=== PATIENT | male | born 1980 | race Caucasian/White ===

== ENCOUNTER 2025-06-17 15:34 | Emergency (ER) | payer MEDICAID, SELFPAY ==
[2025-06-17 15:35] VITALS: BP 142/86; PULSE 110; RESP 18; TEMP 36.8; O2SAT 99; BMI 22.2
--- NOTE | 2025-06-17 15:44 | CT_ITS ---
PROCEDURE: ABDOMEN/PELVIS WITHOUT CONT 06/17/2025 REASON FOR EXAM: KIDNEY STONE TECHNIQUE: Procedure Code: CTABDPEL Modality: CT Procedure: ABDOMEN/PELVIS WITHOUT CONT Noncontrast technique limits evaluation of the abdominal and pelvic viscera. Coronal and Sagittal reconstruction series were provided. One or more dose reduction techniques were used (e.g., Automated exposure control, adjustment of the mA and/or kV according to patient size, use of iterative reconstruction technique). COMPARISON: None available. FINDINGS: Lung bases: Unremarkable. Liver: Normal-size. Left hepatic cyst measures 2.0 x 1.2 cm. No obvious hepatic mass. Gallbladder: Unremarkable. No biliary ductal dilatation. Spleen: Normal size. Pancreas: Normal size. No surrounding inflammation. Adrenals: Unremarkable. Kidneys: Nonobstructive left renal calculus measuring 2 mm. No hydronephrosis. Bladder: Unremarkable. Reproductive Organs: Prostate nonenlarged. No pelvic masses. Bowel: No bowel obstruction. Appendix: Normal. Lymph nodes: Unremarkable. Vasculature: The abdominal aorta and IVC contours are normal. Noncontrast technique limits evaluation. Peritoneum / Retroperitoneum: No free fluid or air. Bones: No acute fractures. CT/Abdomen/Pelvis without Cont IMPRESSION: 1. Nonobstructive 2 mm left renal calculus. 2. Left hepatic cyst measures 2.0 cm. 3. No acute findings in the abdomen or pelvis. Reading Location: [facility]
--- NOTE | 2025-06-17 15:45 | EX.ED.DYSGE1 ---
HPI History of Present Illness Chief Complaint: Flank Pain Detail of Chief Complaint: Right flank pain radiating anteriorly with nausea, vomiting and initially h Informant: patient Onset/Context/Timing Onset: Days Context: Sudden Onset Timing: Continuous and Waxes and wanes Quality: Colicky pain Location: Right flank radiating anteriorly Current Severity: Moderate Maximum Severity: Severe Worsened by: Nothing Relieved by: Nothing Associated Symptoms Associated Symptoms: Initially hematuria and nausea and Narrative Narrative: Patient is a 44-year-old male with no significant past medical history. He has history of renal/ureteral lithiasis. He has not been seen in the emergency room for several years. States several days ago he developed abrupt onset of flank pain radiating anteriorly with initial hematuria. He no longer has noted blood. He has had a couple episodes of vomiting. He denies objective fever or shaking chills. He denies headache, visual, ocular auditory symptoms. He denies cardiac or respiratory symptoms. He denies hematemesis. He denies scrotal pain or swelling. He denies any alleviating, precipitating or exacerbating factors. Prior similar symptoms: Yes (Kidney stone/ureterolithiasis) Recent Illness/Hospitalization: No PFSH [facility] Medical History (Updated 06/17/25 @ 18:[address] Mann Babb MD) Ureterolithiasis Home Medications ?Medication ?Instructions ?Recorded ?Last Taken ?Type ketorolac 10 mg tablet 10 mg PO Q6H PRN Pain 03/12/14 Unknown History hydrocodone-acetaminophen 5-325mg 1 tab PO Q6H PRN PRN Pain 3 days 06/17/25 Unknown Rx 5mg-325mg #10 TABLETS ketorolac 10 mg tablet 10 mg PO Q6H #20 tabs 06/17/25 Unknown Rx Allergy/AdvReac Type Severity Reaction Status Date / Time No Known Allergies Allergy Verified 06/17/25 15:36 Surgical History no surgical history no surgical history Social History Smoking Status: Current every day smoker tobacco type: cigarettes ROS ROS ED Constitutional Constitutional ED: Denies chills, fever(s), subjective, sweats or weight loss Eyes Eyes: Denies blurry vision or change in vision ENT ENT ED: Denies rhinorrhea Cardiovascular Cardiovascular: Denies chest pain or palpitations Respiratory/Chest Respiratory/Chest: Denies cough, dyspnea or dyspnea on exertion Gastrointestinal Gastrointestinal: Reports abdominal pain, nausea and vomiting; Denies constipation, diarrhea or melena Genitourinary Genitourinary ED: Reports hematuria; Denies dysuria or urinary frequency Musculoskeletal Musculoskeletal: Reports other Details: Right sided flank pain ; Denies arthralgias, back pain or myalgias Integumentary Denies rash Neurologic Neurologic: Denies headache(s) or paresthesias Endocrine Endocrinology: Denies cold intolerance or heat intolerance Hematologic/Lymphatic Hematologic/Lymphatic: Reports systems reviewed and no addt'l complaints, except as documented EXAM Physical Exam Const Vital Signs: 06/17/25 15:35 06/17/25 17:44 Temperature 98.2 F 98.7 F Temperature Source Oral Oral Pulse Rate 110 H 82 Respiratory Rate 18 16 Blood Pressure 142/86 H 118/79 Blood Pressure Mean 104 92 Pulse Ox 99 100 Oxygen Delivery Method Room Air Room Air Positive well nourished and well developed Constitutional Narrative: Patient appears uncomfortable. His blood pressure is elevated. He is tachycardic. He is slightly pale. General Appearance ED: well developed HEENT Reports moist mucous membranes HEENT Narrative: Head is atraumatic and normocephalic. Ears are unremarkable. Nares patent. Eyes PERRL and EOMs intact bilaterally General Eye ED: Negative for pale conjunctiva or scleral icterus Neck no lymphadenopathy, supple and no JVD Resp normal respiratory effort and clear to auscultation bilaterally Cardio regular rate, regular rhythm, S1 normal heart sound, S2 normal heart sound and no murmurs GI normal to inspection, nondistended, normoactive bowel sounds, non-tender, non-distended and no masses; Negative for hepatosplenomegaly Narrative: Mild right-sided flank pain to percussion. Back/Spine General Back: CVA tenderness right Thoracic Spine / Upper Back: Negative for thoracic spinal tenderness Lumbar Spine / Lower Back: Negative for lumbar spinal tenderness Extremity normal to inspection General Extremety ED: Negative for edema or tenderness General Extremity: Negative for edema Neuro oriented x3 and CN's II-XII intact bilaterally Sensorium / Orientation: alert Psych mental status grossly normal Skin Skin Narrative: Numerous tattoos MDM MDM MDM Narrative Medical decision making narrative: Patient appears uncomfortable. IV was established. He was treated with IV ketorolac for his pain and Zofran for his nausea. CT of the abdomen pelvis without contrast was ordered as well as appropriate blood work to assess renal function, white count and urine. Prior record dates back over 10 years ago for nonsignificant overdose. Patient was seen by Dr. Caceres at that time History & Record Review Additional record(s) reviewed:: Prior ED visit and Prior labs Lab Data Attestation: I reviewed the patient's lab results. Lab results narrative: White count is elevated. This may be a stress response. H&H is unremarkable. Labs: Laboratory Results - last 24 hr 06/17/25 06/17/25 15:56 16:58 WBC 13.5 H RBC 5.44 Hgb 16.0 Hct 46.5 MCV 85.5 MCH 29.4 MCHC 34.4 RDW Std Deviation 39.9 RDW Coeff of Liz 12.9 Plt Count 273 MPV 10.1 Immature Gran % (Auto) 0.200 Neut % (Auto) 83.8 H Lymph % (Auto) 9.8 L [place] % (Auto) 6.0 Eos % (Auto) 0.1 Baso % (Auto) 0.1 Absolute Neuts (auto) 11.3 H Absolute Lymphs (auto) 1.32 Nucleated RBC % 0 Sodium 139 Potassium 4.3 Chloride 104 Carbon Dioxide 22.8 Anion Gap 12 BUN 12 Creatinine 1.01 Estim Creat Clear Calc 88.24 Est GFR (MDRD) Non-Af 93 BUN/Creatinine Ratio 11.4 Glucose 111 H Calcium 9.5 Urine Color Yellow Urine Clarity Clear Urine pH 7.0 Ur Specific [place] 1.005 Urine Protein Negative Urine Glucose (UA) Normal Urine Ketones 50 H Urine Occult Blood 150 H Urine Nitrite Negative Urine Bilirubin Negative Urine Urobilinogen Normal Ur Leukocyte Esterase 25 H Urine RBC 5-10 SEEN Urine WBC 0-5 SEEN Ur Squamous Epith Cells 0-5 SEEN Urine Bacteria 0 SEEN Urine Mucus 0 SEEN Radiography Diagnostic Testing: Clinical Impression(s) from Imaging Studies Abdomen/Pelvis CT 06/17/25 15:44 IMPRESSION: 1. Nonobstructive 2 mm left renal calculus. 2. Left hepatic cyst measures 2.0 cm. 3. No acute findings in the abdomen or pelvis. Reading Location: [facility] CT of the abdomen pelvis without contrast reveals hydroureter on the right with a oblong shaped stone at the UVJ. Radiology report was read. Looked at the axial, coronal and sagittal views again. What I thought was a UVJ stone was actually a phlebolith on the coronal views. Patient does have a nonobstructing left renal calculus. His pain is on the right, however. His urine does not reveal evidence of infection. The cause of his pain is unknown known. Treatment and Re-Evaluation :: Patient had increase in pain and became diaphoretic. 6 mg of morphine was ordered. This was after he received the acuter [place]. Discharge Plan Triage Chief Complaint: Flank Pain ED Provider: Mann Babb Dx/Rx/DC Orders Clinical Impression: Acute right flank pain, Nausea & vomiting, Dysuria, Tachycardia, Elevated blood pressure reading without diagnosis of hypertension, Calculus of left kidney Instructions: ED Dysuria, Uncertain Cause (Adult), ED Flank Pain with Uncertain Cause, ED Hypertension, To Be Confirmed Prescriptions: New ketorolac 10 mg tablet 10 mg PO Q6H Qty: 20 0RF Rx Instructions: maximum total duration of 5 days from all oral, intranasal, or parenteral formulations hydrocodone-acetaminophen 5-325 mg tablet 1 tab PO Q6H PRN PRN (Reason: Pain) 3 Days Qty: 10 0RF No Action ketorolac 10 MG tablet 10 mg PO Q6H PRN (Reason: Pain) Primary Care Provider: Care Physician,No Primary Referrals: Geovani Chanel MD [Med Staff - Active Staff, Urology] - 3-5 Days if not improving Care Physician,No Primary [Primary Care Provider, Medical] Activity Restrictions/Additional Instructions: Return if the pain medicine does not control your pain, temperature greater than 100, unable to eat or drink anything Print Language: Arabic Disposition Disposition: Home, Self Care
[2025-06-17] MEDS: 0.9% Normal Saline (1000mL) 1,000 ML 250 ML IV (15:59)
[2025-06-17 16:05] LABS: Hematocrit 46.5 % (40-54); Hemoglobin 16.0 g/dL (13.0-16.5); Immature Granulocytes Count 0.030 X10^3/uL (0.0-0.0); Mean Corp Hgb Conc 34.4 g/dL (32-36); Mean Corpuscular Volume 85.5 fL (80-94); Mean Platelet Vol. 10.1 fl (6.2-12.0); NRBC Flagged by Analyzer 0 % (0-5); Platelet Count 273 K/mm3 (150-450); RBC Distribution Width CV 12.9 % (11.6-14.6); RBC Distribution Width SD 39.9 fl (35.1-43.9); Red Blood Count 5.44 M/mm3 (4.6-6.2); White Blood Count 13.5 K/mm3 (4.4-11.0)
[2025-06-17 16:53] LABS: Anion Gap 12 (5-15); BUN 12 mg/dL (4-19); BUN/Creat Ratio 11.4 RATIO (10-20); Calcium,Total 9.5 mg/dL (7.6-11.0); Carbon Dioxide 22.8 mmol/L (21.0-32.0); Chloride 104 mmol/L (98-108); Estimated Creatinine Clearance 88.24 ml/min (50-250); Glucose 111 mg/dL (70-99); Potassium 4.3 mmol/L (3.3-5.1)
[2025-06-17 17:08] LABS: Mucous, Urine 0 SEEN /hpf (<or=2+)
[2025-06-17 17:29] LABS: Color, Urine Yellow (Yellow); Glucose, Dipstick Normal (Normal); Ketone-Dipstick 50 mg/dl (Negative); Leukocyte Esterase-Dipstick 25 /ul (Negative); Nitrite-Dipstick Negative (Negative); Occult Blood-Urine 150 /ul (Negative); Protein-Dipstick Negative (Negative); Specific Gravity, Urine 1.005 (1.002-1.030); Urine Bilirubin Dipstick Negative (Negative)
[2025-06-17 17:41] LABS: Red Blood Cells-Urine 5-10 SEEN /hpf (0-5); Squamous Epithelial Cells - UA 0-5 SEEN /hpf (0-5)
[2025-06-17 17:44] VITALS: BP 118/79; PULSE 82; RESP 16; TEMP 37.1; O2SAT 100
[2025-06-17 18:09] VITALS: BP 118/79; PULSE 82; RESP 16; TEMP 37.1; O2SAT 100
== END 2025-06-17 18:09 | disposition home or self-care (01) ==
PROVIDERS: Emergency Provider Emergency Medicine; Visit Provider Emergency Medicine
DX: R10.A1 Flank pain, right side (principal); R11.2 Nausea with vomiting, unspecified; R00.0 Tachycardia, unspecified; R30.0 Dysuria; N20.0 Calculus of kidney; R03.0 Elevated blood-pressure reading, without diagnosis of hypertension; R31.9 Hematuria, unspecified; F17.210 Nicotine dependence, cigarettes, uncomplicated
CPT/HCPCS: 74176; 80048; 81001; 85025; 96361; 96374; 96375; 99283; J2405

== ENCOUNTER 2025-07-08 13:24 | Emergency (ER) | payer MEDICAID, SELFPAY ==
[2025-07-08 13:25] VITALS: BP 141/96; PULSE 89; RESP 16; TEMP 36.6; O2SAT 99; BMI 21.7
--- NOTE | 2025-07-08 14:39 | CT_ITS ---
PROCEDURE: ABDOMEN/PELVIS WITHOUT CONT 07/08/2025 REASON FOR EXAM: RIGHT FLANK PAIN TECHNIQUE: Procedure Code: CTABDPEL Modality: CT Procedure: ABDOMEN/PELVIS WITHOUT CONT Noncontrast technique limits evaluation of the abdominal and pelvic viscera. Coronal and Sagittal reconstruction series were provided. One or more dose reduction techniques were used (e.g., Automated exposure control, adjustment of the mA and/or kV according to patient size, use of iterative reconstruction technique). RADIATION DOSE SUMMARY: CTDlvol: 6.04 mGy DLP: 309.57 mGycm COMPARISON: June 17, 2025. FINDINGS: Lung bases: Lung bases are clear. Liver: Stable small cyst in the medial aspect of the left lobe of the liver. Gallbladder: Unremarkable Spleen: Normal size. Pancreas: Normal size. No surrounding inflammation. Adrenals: Unremarkable. Kidneys: Right hydronephrosis and right hydroureter due to a 2 mm Bladder: Unremarkable Bowel: Unremarkable Appendix: Unremarkable Lymph nodes: Unremarkable. Vasculature: The abdominal aorta and IVC contours are normal. Noncontrast technique limits evaluation. Peritoneum / Retroperitoneum: Unremarkable Bones: Unremarkable CT/Abdomen/Pelvis without Cont IMPRESSION: 2 mm calculus at the right ureterovesical junction causing mild degree of right hydronephrosis and right hydroureter. Reading Location: [place] [id number]
--- NOTE | 2025-07-08 14:41 | EX.ED.DYSGE1 ---
HPI History of Present Illness Chief Complaint: Flank Pain Detail of Chief Complaint: Right flank pain Informant: patient Narrative Narrative: Patient presents with right-sided flank pain that started 3 weeks ago. He said pain off and on. He is on days without any discomfort at times. He states he was seen in the emergency department 2 to 3 weeks ago and was diagnosed with kidney stone on the left side but they did not see a stone on the right side. Patient had some dysuria 2 days ago went to urgent care and they checked his urine and they noted some blood but not any signs of infection. Patient denies fever. Denies nausea or vomiting. [facility] Medical History (Updated 07/08/25 @ 15:[address] Norberto Morris DO) Ureterolithiasis Home Medications Medication Instructions Recorded Last Taken Type ketorolac 10 mg tablet 10 mg PO Q6H PRN Pain 03/12/14 Unknown History hydrocodone-acetaminophen 5-325mg 1 tab PO Q6H PRN PRN Pain 3 days 06/17/25 Unknown Rx 5mg-325mg #10 TABLETS ketorolac 10 mg tablet 10 mg PO Q6H #20 tabs 06/17/25 Unknown Rx hydrocodone-acetaminophen 5-325mg 1 tab PO Q4H PRN PRN Pain 2 days 07/08/25 Unknown Rx 5mg-325mg #10 TABLETS naproxen 500 mg tablet (Naprosyn) 500 mg PO BID PRN pain #20 tabs 07/08/25 Unknown Rx Allergy/AdvReac Type Severity Reaction Status Date / Time No Known Allergies Allergy Verified 07/08/25 13:28 Social History Smoking Status: Current every day smoker tobacco type: cigarettes ROS ROS ED Review of Systems ROS Unobtainable: other Constitutional Constitutional ED: Reports lethargy; Denies chills, fever(s), sweats or weight loss Eyes Eyes: Denies blurry vision, change in vision or diplopia ENT ENT ED: Denies rhinorrhea or sore throat Cardiovascular Cardiovascular: Denies chest pain, orthopnea or racing heartbeat Respiratory/Chest Respiratory/Chest: Denies cough, dyspnea, dyspnea on exertion, orthopnea or sputum Gastrointestinal Gastrointestinal: Reports abdominal pain; Denies diarrhea, nausea or vomiting Genitourinary Genitourinary ED: Reports dysuria; Denies hematuria or urinary frequency Musculoskeletal Musculoskeletal: Reports back pain; Denies arthralgias, myalgias or neck pain Integumentary Denies abscess, Abrasions or rash Neurologic Neurologic: Denies headache(s) or weakness Psychiatric Psychiatric: Denies anxiety, depression or suicidal thoughts Endocrine Endocrinology: Denies polydipsia, polyphagia or polyuria Hematologic/Lymphatic Hematologic/Lymphatic: Denies easy bleeding, easy bruising or lymphadenopathy Allergic/Immunologic Allergic/Immunologic ED: Denies mouth swelling, tongue swelling or urticaria EXAM Physical Exam Const Vital Signs: 07/08/25 13:25 Temperature 97.9 F Temperature Source Temporal Pulse Rate 89 Respiratory Rate 16 Blood Pressure 141/96 H Blood Pressure Mean 111 Pulse Ox 99 Oxygen Delivery Method Room Air Positive well nourished and well developed General Appearance ED: well developed and NAD HEENT Reports TM's clear and moist mucous membranes normocephalic and atraumatic; Negative for trauma or tenderness Tympanic Membrane ED: Yes TM's clear Eyes PERRL and EOMs intact bilaterally General Eye ED: Negative for pale conjunctiva or scleral icterus Neck no lymphadenopathy, supple and no JVD General: Negative for tenderness Chest Wall inspection of chest normal and palpation of chest normal Chest: Negative for tenderness Resp normal respiratory effort and clear to auscultation bilaterally Effort and Inspection: Negative for respiratory distress or pain with movement Auscultation: Negative for rhonchi, wheezes or diminished lung sounds Cardio regular rate, regular rhythm, S1 normal heart sound, S2 normal heart sound and no murmurs Peripheral Pulses: pulses 2+ throughout GI normal to inspection, nondistended, normoactive bowel sounds, soft to palpation, non-distended and no masses GI Narrative: Mild tenderness to the right upper quadrant and right lower quadrant with some guarding. There is no rebound, rigidity, or peritoneal signs. He does have some CVA tenderness on the right Back/Spine no thoracic nor lumbar tenderness Back/Spine Narrative: Mild CVA tenderness on the right Extremity normal to inspection General Extremety ED: Negative for edema General Extremity: Negative for edema Neuro oriented x3, CN's II-XII intact bilaterally, no sensory deficits noted and gait normal Sensorium / Orientation: awake, alert, oriented to person, oriented to place and oriented to time Motor Exam: strength 5/5 throughout and strength abnormal Psych mental status grossly normal Skin no rashes or lesions noted and no wounds MDM MDM MDM Narrative Medical decision making narrative: Patient presenting with right flank pain. Seen on 06-17-25 for same at that time they noted a stone within the left kidney but no other acute findings. States that he had a couple of days where he was pain-free but then the pain returned. Rates his pain a 6 or 7 out of 10. He feels it in his lower right kidney and then at times it radiates down to his bladder. Patient has had some dysuria recently and went to urgent care where they checked his urine and told that some blood in the urine but no infection. Clinically he looks well. He was medicated with Toradol and had good pain relief with that. CBC with differential obtained showed a white count of 5.7 with hemoglobin 15 and platelet count of 263. Chemistries unremarkable. LFTs were normal. Urinalysis 5-10 RBCs with +1 bacteria but negative for nitrites and only [address] scan of the abdomen pelvis showed a 2 mm right UVJ stone causing mild hydronephrosis and hydroureter. Discussed results with patient. Will send home with urine strainers as well as prescription for naproxen and [place] for pain. Will refer to urology for follow-up. Advised to return if worsening pain, fever, vomiting, or condition should worsen anyway. Lab Data Labs: Laboratory Results - last 24 hr 07/08/25 07/08/25 14:15 14:49 WBC 5.7 RBC 5.17 Hgb 15.0 Hct 45.1 MCV 87.2 MCH 29.0 MCHC 33.3 RDW Std Deviation 40.7 RDW Coeff of Liz 12.9 Plt Count 283 MPV 10.4 Immature Gran % (Auto) 0.400 Neut % (Auto) 69.8 Lymph % (Auto) 17.7 L [place] % (Auto) 10.4 H Eos % (Auto) 1.2 Baso % (Auto) 0.5 Absolute Neuts (auto) 4.0 Absolute Lymphs (auto) 1.00 Nucleated RBC % 0 Sodium 140 Potassium 3.8 Chloride 102 Carbon Dioxide 30.0 Anion Gap 8 BUN 13 Creatinine 1.18 Estim Creat Clear Calc 73.77 Est GFR (MDRD) Non-Af 77 BUN/Creatinine Ratio 11.4 Glucose 96 Calcium 9.7 Total Bilirubin 1.49 H AST 19 ALT 13 Alkaline Phosphatase 59 Total Protein 7.0 Albumin 4.6 Globulin 2.4 Albumin/Globulin Ratio 1.9 Urine Color Yellow Urine Clarity Cloudy Urine pH 8.0 Ur Specific [place] 1.020 Urine Protein 30 H Urine Glucose (UA) Normal Urine Ketones Negative Urine Occult Blood 150 H Urine Nitrite Negative Urine Bilirubin Negative Urine Urobilinogen 1 H Ur Leukocyte Esterase 25 H Urine RBC 5-10 SEEN Urine WBC 0-5 SEEN Ur Squamous Epith Cells 0 SEEN Amorphous Sediment 2+ Urine Bacteria 1+ Urine Mucus 0 SEEN Radiography Diagnostic Testing: Clinical Impression(s) from Imaging Studies Abdomen/Pelvis CT 07/08/25 14:39 IMPRESSION: 2 mm calculus at the right ureterovesical junction causing mild degree of right hydronephrosis and right hydroureter. Reading Location: [place] [id number] Discharge Plan Triage Chief Complaint: Flank Pain ED Provider: Norberto Morris Dx/Rx/DC Orders Clinical Impression: Ureterolithiasis Instructions: ED Kidney Stone with Pain Prescriptions: New hydrocodone-acetaminophen 5-325 mg tablet 1 tab PO Q4H PRN PRN (Reason: Pain) 2 Days Qty: 10 0RF naproxen [Naprosyn] 500 mg tablet 500 mg PO BID PRN (Reason: pain) Qty: 20 0RF No Action ketorolac 10 MG tablet 10 mg PO Q6H PRN (Reason: Pain) ketorolac 10 mg tablet 10 mg PO Q6H Qty: 20 0RF Rx Instructions: maximum total duration of 5 days from all oral, intranasal, or parenteral formulations hydrocodone-acetaminophen 5-325 mg tablet 1 tab PO Q6H PRN PRN (Reason: Pain) 3 Days Qty: 10 0RF Primary Care Provider: Care Physician,No Primary Referrals: Geovani Chanel MD [Med Staff - Active Staff, Urology] - 5-7 Days Care Physician,No Primary [Primary Care Provider, Medical] Print Language: Tunisian Disposition Disposition: Home, Self Care
[2025-07-08] MEDS: 0.9% Normal Saline (1000mL) 1,000 ML 150 ML IV (14:50)
[2025-07-08] MEDS: Ketorolac 30 MG/ML Syringe IV (14:50)
[2025-07-08 14:52] LABS: Hematocrit 45.1 % (40-54); Hemoglobin 15.0 g/dL (13.0-16.5); Immature Granulocytes Count 0.020 X10^3/uL (0.0-0.0); Mean Corp Hgb Conc 33.3 g/dL (32-36); Mean Corpuscular Volume 87.2 fL (80-94); Mean Platelet Vol. 10.4 fl (6.2-12.0); NRBC Flagged by Analyzer 0 % (0-5); Platelet Count 283 K/mm3 (150-450); RBC Distribution Width CV 12.9 % (11.6-14.6); RBC Distribution Width SD 40.7 fl (35.1-43.9); Red Blood Count 5.17 M/mm3 (4.6-6.2); White Blood Count 5.7 K/mm3 (4.4-11.0)
[2025-07-08 15:06] LABS: Mucous, Urine 0 SEEN /hpf (<or=2+); Squamous Epithelial Cells - UA 0 SEEN /hpf (0-5)
[2025-07-08 15:12] LABS: Color, Urine Yellow (Yellow); Glucose, Dipstick Normal (Normal); Ketone-Dipstick Negative (Negative); Leukocyte Esterase-Dipstick 25 /ul (Negative); Nitrite-Dipstick Negative (Negative); Occult Blood-Urine 150 /ul (Negative); Protein-Dipstick 30 mg/dl (Negative); Specific Gravity, Urine 1.020 (1.002-1.030); Urine Bilirubin Dipstick Negative (Negative)
[2025-07-08 15:18] LABS: AST(SGOT) 19 U/L (<=37); Alanine Aminotransfer ALT/SGPT 13 U/L (<=46); Albumin, Serum 4.6 g/dL (3.5-5.0); Alkaline Phosphatase 59 U/L (40-129); Anion Gap 8 (5-15); BUN 13 mg/dL (4-19); BUN/Creat Ratio 11.4 RATIO (10-20); Calcium,Total 9.7 mg/dL (7.6-11.0); Carbon Dioxide 30.0 mmol/L (21.0-32.0); Chloride 102 mmol/L (98-108); Estimated Creatinine Clearance 73.77 ml/min (50-250); Globulin 2.4 g/dL (2.2-4.2); Glucose 96 mg/dL (70-99); Potassium 3.8 mmol/L (3.3-5.1)
[2025-07-08 15:25] LABS: Red Blood Cells-Urine 5-10 SEEN /hpf (0-5)
[2025-07-08 15:59] VITALS: BP 119/60; PULSE 65; RESP 15; TEMP 36.9; O2SAT 100
--- OUTSIDE RECORDS SUMMARY | 2025-07-08 16:38 | XMS RPT_ITS | CCD ---
Author Organization [facility] Inform ion Partnership [facility] Care Team Providers Care Independent Marketing Consultant Name Role Phone Unavailable Primary Care Provider Mann Nielson Attending Unavailable Care Physician, No Primary Primary Care Unava ilBRANDON Rivero Attending Unavailable BRANDON KOCH Referring Unavailable FAWN BROWN Attending Unavailable Medications Current Medications Medication Drug Class(es) Dates Sig (Normalized) Sig (Original) lidocaine 0.05 mg/mg medicated patch (1 source) Antiarrhythmic, Amide Local Anesthetic Start: 01-31-2025 End: 02-10-2025 apply 1 dose transdermal route every twenty-four hours lidocaine (LIDODERM) 5 % Indications: Cervical radiculopathy Apply 1 patch as directed every 24 hours for 10 days. Remove old patch prior to placing new patch. Location: Right Knee 10 patch 01/31/2025 02/10/2025 Active methocarbamol 500 mg oral tablet (1 source) Muscle Relaxant Start: 01-31-2025 End: 02-10-2025 take 1 tablet by mouth three times daily methocarbamol (ROBAXIN) 500 mg tablet Indications: Cervical radiculopathy Take 1 tablet by mouth three times a day for 10 days. 30 tablet 01/31/2025 02/10/2025 Active naproxen 500 mg oral tablet (2 sources) Nonsteroidal Anti-inflammatory Drug Start: 11-17-2020 take 1 tablet by mouth every twelve hours as needed naproxen (NAPROSYN) 500 mg tablet Take 1 tablet by mouth twice daily as needed (pain/inflammation, take with food.). 20 tablet 11/17/2020 Active predniSONE 20 mg oral tablet (1 source) Start: 01-31-2025 End: 02-05-2025 take 1 tablet by mouth twice daily predniSONE (DELTASONE) 20 mg tablet Indications: Cervical radiculopathy Take 1 tablet by mouth two times a day for 5 days. 10 tablet 01/31/2025 02/05/2025 Active Completed/Discontinued Medications Medication Drug Class(es) Dates Sig (Normalized) Sig (Original) cyclobenzaprine hydrochloride 10 mg oral tablet (2 sources) Muscle Relaxant Start: 11-17-2020 End: 01-31-2025 take 1 tablet by mouth every eight hours as needed cyclobenzaprine (FLEXERIL) 10 mg tablet Take 1 tablet by mouth three times daily as needed for Muscle Spasm. 15 tablet 11/17/2020 01/31/2025 Discontinued (Course of therapy completed) Problems Active Problems Problem Classification Problem Date Documented Date Episodic/Chronic Abdominal pain (1 source) Unspecified abdominal pain; Translations: [Unspecified abdominal pain] Onset: 06-28-2025 Episodic Genitourinary symptoms and ill-defined conditions (3 sources) Hypercalciuria; Translations: [Hypercalciuria] Onset: 10-26-2013 10-26-2013 Episodic Spondylosis; intervertebral disc disorders; other back problems (2 sources) Degeneration of cervical intervertebral disc; Translations: [Other cervical disc degeneration, unspecified cervical region] Onset: 01-31-2025 01-31-2025 Chronic Past or Other Problems Problem Classification Problem Date Documented Da te Episodic/Chronic Other non-traumatic joint disorders (3 sources) Pain in left shoulder; Translations: [Pain in joint, shoulder region] Onset: 01-31-2025 01-31-2025 Episodic Spondylosis; intervertebral disc disorders; other back problems (2 sources) Cervical radiculopathy; Translations: [Radiculopathy, cervical region] Onset: 01-31-2025 01-31-2025 Episodic Unclassified (5 sources) Acute pain of left shoulder 01-31-2025 Results Test Name Value Interpretation Reference Range Facility Bacteria Ur Culton Bacteria identified Cx Nom (U) ORGANISM ID: 1 <10,000 CFU/ml Normal urogenital marsha Normal [facility] Comment on above: Performed By: #### 6 30-4 #### [facility] CLIA [id number] [address] [place] [address] [place] CNOVon 07-06-2025 CNOV Office Visit ([facility]) DAVID CARDENAS ([id number]) 1980 M Date Time Provider Department 07/06/25 12:30 PM FAWN BROWN During your visit today, we recorded the following information about you: Temperature Pulse Respiration Blood pressure 98.1 degrees 80/minute 16/minute 122/60 Weight 68 kg Fawn Brown APRN.ACETYLENE TORCH BURNER 07/06/2025 12:49 PM Signed [facility] Subjective David Cardenas is a 44 year old male. Patient presents with: Urinary Frequency: x 1 day, had kidney stones a couple weeks ago HPI Nontoxic-appearing 44-year-old male presents urgent care chief complaint urinary frequency. Duration of symptoms 1 day. Associated symptoms associate symptoms some dysuria flank pain urinary frequency. States passed kidney stones last week. Presents today for evaluation. OTC medications none. No difficulty passing urine or scrotal tenderness penile drainage rashes or concerns for STDs. Past medical history prescription medications allergies reviewed Review of Systems Constitutional: Negative for appetite change, chills, diaphoresis, fatigue and fever. Gastrointestinal: Negative for abdominal pain, diarrhea, nausea and vomiting. Genitourinary: Positive for flank pain and frequency. Negative for decreased urine volume, difficulty urinating, dysuria, enuresis, genital sores, hematuria, penile discharge, penile pain, penile swelling, scrotal swelling, testicular pain and urgency. Objective BP 122/60 Pulse 80 Temp 36.7 ?C (98.1 ?F) Resp 16 Wt 68 kg (149 lb 14.6 oz) SpO2 96% Physical Exam Constitutional: Appearance: Normal appearance. HENT: Head: Normocephalic. Jaw: No trismus, tenderness, swelling or pain on movement. Nose: Nose normal. No congestion or rhinorrhea. Mouth/Throat: Mouth: Mucous membranes are moist. Pharynx: Oropharynx is clear. Uvula midline. No pharyngeal swelling, oropharyngeal exudate, posterior oropharyngeal erythema or uvula swelling. Eyes: Conjunctiva/sclera: Conjunctivae normal. Cardiovascular: Rate and Rhythm: Normal rate. Pulmonary: Effort: Pulmonary effort is normal. Breath sounds: Normal breath sounds. No wheezing, rhonchi or rales. Abdominal: Palpations: Abdomen is soft. Tenderness: There is no abdominal tenderness. There is no right CVA tenderness, left CVA tenderness, guarding or rebound. Musculoskeletal: General: Normal range of motion. Cervical back: Normal range of motion and neck supple. No rigidity. Lymphadenopathy: Cervical: No cervical adenopathy. Skin: General: Skin is warm. Findings: No rash. Neurological: Mental Status: He is alert. {ASSESSMENT/PLAN: 1. Urinary frequency - ICD9: 788.41, ICD10: R35.0 - UA DIP, URINE (POC) - BACTERIAL CULTURE, URINE No acute findings on today's assessment. Blood noted on urine dip. We discussed possible renal calculi. We discussed ER evaluation. We discussed repeat urine dip. Patient was educated on supportive therapies. Patient will follow up with primary care provider 2 to 3 weeks patient was instructed to immediately proceed to emergency room for any new, worsening, or symptoms lasting longer than anticipated. The patient's clinical presentation is otherwise unremarkable at this time. Based on exam and clinical finding, the patient is stable for discharge. Plan of care was discussed with patient. Patient verbalizes understanding and agrees to plan of care. This note was generated using Janalaksh[employer] software. It may contain errors in wording, punctuation, or spelling. Fawn Brown APRN.ACETYLENE TORCH BURNER History and Record Review Clinical information obtained from an independent historian. History obtained from or confirmed by: parent. External record(s) reviewed: prior outpatient record. Disposition The patient was discharged. Procedures Allergies As of Date: 07/06/2025 (No Known Allergies) Date Reviewed: 07/06/2025 Reviewed by: Fawn Brown APRN.ACETYLENE TORCH BURNER - Fully Assessed Reason for Visit: Urinary Frequency [1086] Cmt: x 1 day, had kidney stones a couple weeks ago Primary Visit Diagnosis:Urinary frequency [R35.0] Order(s):UA DIP, URINE (POC) [6270155] Order #: [id number]. #:[id number] BACTERIAL CULTURE, URINE [SQURCUL] Order #: [id number]. #:[id number] Prescriptions as of 07/06/2025 - naproxen (NAPROSYN) 500 mg tablet Take 1 tablet by mouth twice daily as needed (pain/inflammation, take with food.). Problem List As Of Date 07/06/2025 Noted Resolved Hypercalcuria [R82.994] 10/26/2013 Level of Service: OFFICE/OUTPATIENT NEW SF MDM 15 MINUTES [39673] LOS History for Encounter - Level of Service: OFFICE/OUTPATIENT ESTABLISHED LOW MDM 20 MIN[44799] Date AND Time: 07-06-2025 12:49 PM Recorded by User: FAWN BROWN (more content not included)... Normal [facility] Abdomen/Pelvis without Conto n 06-17-2025 Abdomen/Pelvis without Cont [facility] Imaging Services [address] [place] [address] [id number] Abdomen/Pelvis without Cont MR#: [id number] Acct: [id number] Name: DAVID CARDENAS Rep #: [id number] : 1980 M 44 From: Jose Maria Faulkner MD PCP: Care Physician,No Primary Status: REG ER Study: Abdomen/Pelvis without Cont Date of Exam: 05/26 12/17 Exam# [id number] Ordering Dr: Mann Babb MD PROCEDURE: ABDOMEN/PELVIS WITHOUT CONT 06/17/2025 REASON FOR EXAM: KIDNEY STONE TECHNIQUE: Procedure Code: CTABDPEL Modality: CT Procedure: ABDOMEN/PELVIS WITHOUT CONT Noncontrast technique limits evaluation of the abdominal and pelvic viscera. Coronal and Sagittal reconstruction series were provided. One or more dose reduction techniques were used (e.g., Automated exposure control, adjustment of the mA and/or kV according to patient size, use of iterative reconstruction technique). COMPARISON: None available. FINDINGS: Lung bases: Unremarkable. Liver: Normal-size. Left hepatic cyst measures 2.0 x 1.2 cm. No obvious hepatic mass. Gallbladder: Unremarkable. No biliary ductal dilatation. Spleen: Normal size. Pancreas: Normal size. No surrounding inflammation. Adrenals: Unremarkable. Kidneys: Nonobstructive left renal calculus measuring 2 mm. No hydronephrosis. Bladder: Unremarkable. Reproductive Organs: Prostate nonenlarged. No pelvic masses. Bowel: No bowel obstruction. Appendix: Normal. Lymph nodes: Unremarkable. Vasculature: The abdominal aorta and IVC contours are normal. Noncontrast technique limits evaluation. Peritoneum / Retroperitoneum: No free fluid or air. Bones: No acute fractures. CT/Abdomen/Pelvis without Cont IMPRESSION: 1. Nonobstructive 2 mm left renal calculus. 2. Left hepatic cyst measures 2.0 cm. 3. No acute findings in the abdomen or pelvis. Reading Location: [facility] CC: Dr. Mann Babb MD; No Primary Care Physician Registered Nurse Surgical Services: Signed Normal [facility] Basic Metabolic Profile (BMP )on 06-17-2025 BUN/CRE 11.4 RATIO Normal 06-13 [facility] Comment on above: Performed By: #### L 500.2500, L100.0100 #### [facility] Laboratory [address] [place], [address] Calcium [Mass/Vol] 9.5 mg/dL Normal 7.6-11.0 [facility] Comment on above: Performed By: #### L 500.2500, L100.0100 #### [facility] [address] [place], [address] Chloride [Moles/Vol] 104 mmol/L Normal 98-108 [facility] Comment on above: Performed By: #### L 500.2500, L100.0100 #### [facility] [address] [place], [address] CO2 [Moles/Vol] 22.8 mmol/L Normal 21.0-32.0 [facility] Comment on above: Performed By: #### L 500.2500, L100.0100 #### [facility] [address] [place], [address] Creatinine [Mass/Vol] 1.01 mg/dL Normal 0.70-1.20 [facility] Comment on above: Performed By: #### L 500.2500, L100.0100 #### [facility] [address] [place], [address] ECRCL 88.24 ml/min Normal 50-250 [facility] Comment on above: Performed By: #### L 500.2500, L100.0100 #### [facility] [address] [place], [address] GAP 12 Normal 5-15 [facility] Comment on above: Performed By: #### L 500.2500, L100.0100 #### [facility] [address] [place], [address] GFR/1.73 sq M.predicted among non-blacks MDRD (S/P/Bld) [Vol rate/Area] 93 mL/min/{1.73_m2} Normal >60 [facility] Comment on above: Result Comment: mL/m in/1.73m2 CKD-EPI Creatinine Equation (2020) Performed By: #### L 500.2500, L100.0100 #### [facility] [address] [place], [address] Glucose [Mass/Vol] 111 mg/dL High 70-99 [facility] Comment on above: Performed By: #### L 500.2500, L100.0100 #### [facility] [address] [place], [address] Potassium [Moles/Vol] 4.3 mmol/L Normal 3.3-5.1 [facility] Comment on above: Result Comment: Hemo lysis present, Results??could be affected. ?? Performed By: #### L 500.2500, L100.0100 #### [facility] [address] [place], [address] Sodium [Moles/Vol] 139 mmol/L Normal 133-145 [facility] Comment on above: Performed By: #### L 500.2500, L100.0100 #### [facility] [address] [place], [address] Urea nitrogen [Mass/Vol] 12 mg/dL Normal 4-19 [facility] Comment on above: Performed By: #### L 500.2500, L100.0100 #### [facility] [address] [place], [address] CBC W/Diff, Automatedon 10-2 Absolute Lymph 1.32 X10 3/uL Normal 0.83-4.51 [facility] Comment on above: Performed By: #### L 500.2500, L100.0100 #### [facility] [address] [place], [address] Absolute Neut 11.3 X10 3/uL High 2.0-7.7 [facility] Comment on above: Performed By: #### L 500.2500, L100.0100 #### [facility] [address] [place], [address] Basophils/100 WBC (Bld) 0.1 % Normal 0-1 [facility] Comment on above: Performed By: #### L 500.2500, L100.0100 #### [facility] [address] [place], [address] Eosinophils/100 WBC (Bld) 0.1 % Normal 0-5 [facility] Comment on above: Performed By: #### L 500.2500, L100.0100 #### [facility] [address] [place], [address] Erythrocyte distribution width (RBC) [Ratio] 12.9 % Normal 11.6-14.6 [facility] Comment on above: Performed By: #### L 500.2500, L100.0100 #### [facility] [address] [place], [address] Hematocrit (Bld) [Volume fraction] 46.5 % Normal 40-54 [facility] Comment on above: Performed By: #### L 500.2500, L100.0100 #### [facility] [address] [place], [address] Hemoglobin (Bld) [Mass/Vol] 16.0 g/dL Normal 13.0-16.5 [facility] Comment on above: Performed By: #### L 500.2500, L100.0100 #### [facility] [address] [place], [address] IG% 0.200 Normal 0.0-0.9 [facility] Comment on above: Result Comment: IG% - Immature Granulocytes (promyelocytes, myelocytes and metamyelocytes) > 1% indicates that a LEFT SHIFT is Present. Performed By: #### L 500.2500, L100.0100 #### [facility] [address] [place], [address] Lymphocytes/100 WBC (Bld) 9.8 % Low 19-41 [facility] Comment on above: Performed By: #### L 500.2500, L100.0100 #### [facility] [address] [place], [address] MCH (RBC) [Entitic mass] 29.4 pg Normal 27.0-32.0 [facility] Comment on above: Performed By: #### L 500.2500, L100.0100 #### [facility] [address] [place], [address] MCHC (RBC) [Mass/Vol] 34.4 g/dL Normal 32-36 [facility] Comment on above: Performed By: #### L 500.2500, L100.0100 #### [facility] [address] [place], [address] MCV (RBC) [Entitic vol] 85.5 fL Normal 80-94 [facility] Comment on above: Performed By: #### L 500.2500, L100.0100 #### [facility] [address] [place], [address] Monocytes/100 WBC (Bld) 6.0 % Normal 0-10 [facility] Comment on above: Performed By: #### L 500.2500, L100.0100 #### [facility] [address] [place], [address] Neutrophils/100 WBC (Bld) 83.8 % High 47-70 [facility] Comment on above: Performed By: #### L 500.2500, L100.0100 #### [facility] [address] [place], [address] Nucleated RBC (Bld) [#/Vol] 0 10*3/uL Normal 0-5 [facility] Comment on above: Performed By: #### L 500.2500, L100.0100 #### [facility] [address] [place], [address] Platelet mean volume (Bld) [Entitic vol] 10.1 fL Normal 6.2-12.0 [facility] Comment on above: Performed By: #### L 500.2500, L100.0100 #### [facility] [address] [place], [address] Platelets (Bld) [#/Vol] 273 10*3/uL Normal 150-450 [facility] Comment on above: Performed By: #### L 500.2500, L100.0100 #### [facility] [address] [place], [address] RBC (Bld) [#/Vol] 5.44 10*6/uL Normal 4.6-6.2 [facility] Comment on above: Performed By: #### L 500.2500, L100.0100 #### [facility] [address] [place], [address] RDW SD 39.9 fl Normal 35.1-43.9 [facility] Comment on above: Performed By: #### L 500.2500, L100.0100 #### [facility] [address] [place], [address] WBC (Bld) [#/Vol] 13.5 10*3/uL High 4.4-11.0 [facility] Comment on above: Performed By: #### L 500.2500, L100.0100 #### [facility] [address] [place], [address] Emergency Department Summary on 06-17-2025 Emergency Department Summary [facility] Medical Records Department [address] [place] [address] Emergency Department Summary 06/17/25 MR#: [id number] Acct: [id number] Name: DAVID CARDENAS Rep #: [id number] : 1980 44 From: Mann Babb MD PCP: Care Physician,No Primary Status:REG ER Location: ED HPI History of Present Illness Chief Complaint: Flank Pain Detail of Chief Complaint: Right flank pain radiating anteriorly with nausea, vomiting and initially h Informant: patient Onset/Context/Timing Onset: Days Context: Sudden Onset Timing: Continuous and Waxes and wanes Quality: Colicky pain Location: Right flank radiating anteriorly Current Severity: Moderate Maximum Severity: Severe Worsened by: Nothing Relieved by: Nothing Associated Symptoms Associated Symptoms: Initially hematuria and nausea and Narrative Narrative: Patient is a 44-year-old male with no significant past medical history. He has history of renal/ureteral lithiasis. He has not been seen in the emergency room for several years. States several days ago he developed abrupt onset of flank pain radiating anteriorly with initial hematuria. He no longer has noted blood. He has had a couple episodes of vomiting. He denies objective fever or shaking chills. He denies headache, visual, ocular auditory symptoms. He denies cardiac or respiratory symptoms. He denies hematemesis. He denies scrotal pain or swelling. He denies any alleviating, precipitating or exacerbating factors. Prior similar symptoms: Yes (Kidney stone/ureterolithiasis) Recent Illness/Hospitalization : No PFSH [facility] Medical History (Updated 06/17/25 @ 18:[address] Mann Babb MD) Ureterolithiasis Home Medications ???Medication ???Instructions ???Recorded ???Last Taken ???Type ketorolac 10 mg tablet 10 mg PO Q6H PRN Pain 03/12/14 Unk nown History hydrocodone-acetaminoph en 5-325mg 1 tab PO Q6H PRN PRN Pain 3 days 06/17/25 Unknown Rx 5mg-325mg #10 TABLETS ketorolac 10 mg tablet 10 mg PO Q6H #20 tabs 06/17/25 Unk nown Rx Allergy/AdvReac Type Severity Reaction Status Date / Time No Known Allergies Allergy Verified 06/17/25 15:36 Surgical History no surgical history no surgical history Social History Smoking Status: Current every day smoker tobacco type: cigarettes ROS ROS ED Constitutional Constitutional ED: Denies chills, fever(s), subjective, sweats or weight loss Eyes Eyes: Denies blurry vision or change in vision ENT ENT ED: Denies rhinorrhea Cardiovascular Cardiovascular: Denies chest pain or palpitations Respiratory/Chest Respiratory/Chest: Denies cough, dyspnea or dyspnea on exertion Gastrointestinal Gastrointestinal: Reports abdominal pain, nausea and vomiting; Denies constipation, diarrhea or melena Genitourinary Genitourinary ED: Reports hematuria; Denies dysuria or urinary frequency Musculoskeletal Musculoskeletal: Reports other Details: Right sided flank pain ; Denies arthralgias, back pain or myalgias Integumentary Denies rash Neurologic Neurologic: Denies headache(s) or paresthesias Endocrine Endocrinology: Denies cold intolerance or heat intolerance Hematologic/Lymphatic Hematologic/Lymphatic: Reports systems reviewed and no addt'l complaints, except as documented EXAM Physical Exam Const Vital Signs: 06/17/25 15:35 06/17/25 17:44 Temperature 98.2 F 98.7 F Temperature Source Oral Oral Pulse Rate 110 H 82 Respiratory Rate 18 16 Blood Pressure 142/86 H 118/79 Blood Pressure Mean 104 92 Pulse Ox 99 100 Oxygen Delivery Method Room Air Room Air Positive well nourished and well developed Constitutional Narrative: Patient appears uncomfortable. His blood pressure is elevated. He is tachycardic. He is slightly pale. General Appearance ED: well developed HEENT Reports moist mucous membranes HEENT Narrative: Head is atraumatic and normocephalic. Ears are unremarkable. Nares patent. Eyes PERRL and EOMs intact bilaterally General Eye ED: Negative for pale conjunctiva or scleral icterus Neck no lymphadenopathy, supple and no JVD Resp normal respiratory effort and clear to auscultation bilaterally Cardio regular rate, regular rhythm, S1 normal heart sound, S2 normal heart sound and no murmurs GI normal to inspection, nondistended, normoactive bowel sounds, non-tender, non-distended and no masses; Negative for hepatosplenomegaly Narrative: Mild right-sided flank pain to percussion. Back/Spine General Back: CVA tenderness right Thoracic Spine / Upper Back: Negative for thoracic spinal tenderness Lumbar Spine / Lower Back: Negative for lumbar spinal tenderness Extremity normal to inspection General Extremety ED: Negative for edema or tenderness General (more content not included)... Normal [facility] Urinalysis, Completeon 06-17 EPI,SQUAMOUS 0-5 SEEN Normal 0-5 [facility] Comment on above: Order Comment: CLEAN CATCH Performed By: #### L 400.0001 #### [facility] [address] [place], [address] RBC 5-10 SEEN Normal 0-5 [facility] Comment on above: Order Comment: CLEAN CATCH Performed By: #### L 400.0001 #### [facility] [address] [place], [address] WBC 0-5 SEEN Normal 0-5 [facility] Comment on above: Order Comment: CLEAN CATCH Performed By: #### L 400.0001 #### [facility] [address] [place], [address] BACTERIA 0 SEEN Normal None Seen [facility] Comment on above: Order Comment: CLEAN CATCH Performed By: #### L 400.0001 #### [facility] [address] [place], [address] Mucus Ql (Urine sed) 0 SEEN Normal [facility] Comment on above: Order Comment: CLEAN CATCH Performed By: #### L 400.0001 #### [facility] [address] [place], [address] CNOVon 01-31-2025 CNOV Office Visit (UCWSTR ) DAVID CARDENAS ([id number]) 1980 M Date Time Provider Department 01/31/25 1:15 PM BRANDON KOCH [facility] During your visit today, we recorded the following information about you: Temperature Pulse Respiration Blood pressure 98.1 degrees 71/minute 18/minute 112/72 Weight 65.2 kg Brandon Koch PA-C 01/31/2025 2:20 PM Signed This note was created using Sounday. Subjective David Cardenas is a 44 year old male. Patient is a 44-year-old male who complains of posterior left shoulder pain that radiates to his left arm that he has been experiencing for the past 2 days. Patient denies accident or injury to his left shoulder and arm. 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 Patient denies neck pain and states he has no known history of degenerative disc disease. Patient has no history of fracture or surgery to his neck or left shoulder. 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 Patient is right-hand dominant. Patient has no history of similar symptoms. Trauma Review of Systems Musculoskeletal: Left Shoulder Pain All other systems reviewed and are negative. Objective BP 112/72 Pulse 71 Temp 36.7 ?C (98.1 ?F) Resp 18 Wt 65.2 kg (143 lb 11.8 oz) SpO2 98% Physical Exam Vitals and nursing note reviewed. Constitutional: Appearance: Normal appearance. He is normal weight. HENT: Head: Normocephalic and atraumatic. Nose: Nose normal. Mouth/Throat: Mouth: Mucous membranes are moist. Pharynx: Oropharynx is clear. Eyes: Extraocular Movements: Extraocular movements intact. Conjunctiva/sclera: Conjunctivae normal. Pupils: Pupils are equal, round, and reactive to light. Cardiovascular: Rate and Rhythm: Normal rate. Pulses: Normal pulses. Pulmonary: Effort: Pulmonary effort is normal. Breath sounds: Normal breath sounds. Musculoskeletal: General: Tenderness present. No swelling, deformity or signs of injury. Normal range of motion. Cervical back: Normal range of motion and neck supple. Skin: General: Skin is warm and dry. Capillary Refill: Capillary refill takes less than 2 seconds. Findings: No bruising or erythema. Neurological: General: No focal deficit present. Mental Status: He is alert and oriented to person, place, and time. Cranial Nerves: No cranial nerve deficit. Sensory: No sensory deficit. Motor: No weakness. Coordination: Coordination normal. Psychiatric: Mood and Affect: Mood normal. Behavior: Behavior normal. Thought Content: Thought content normal. Judgment: Judgment normal. Assessment and Plan Physical exam findings as noted above. X-ray cervical spine demonstrates disc space narrowing at C6-C7 with endplate osteophytes as reported by the radiologist. Radiologist also reports additional mild scattered degenerative changes. X-ray left shoulder is negative for acute findings and radiologist does not identify any notable degenerative changes. Patient was informed of the above findings. Patient was provided with prescriptions for prednisone 20 mg, Robaxin 500 mg and Lidoderm 5% patches. Supportive care instructions were discussed and patient verbalizes excellent understanding of same. CLINICAL IMPRESSION: Left Shoulder Pain; Cervical Radiculopathy; Degenerative Disc Disease Cervical Spine ASSESSMENT/PLAN: 1. Acute pain of left shoulder - ICD9: 719.41, ICD10: M25.512 (primary diagnosis) - XR CERV INJURY 3V AP/LAT/ODON 2. Cervical radiculopathy - ICD9: 723.4, ICD10: M54.12 - PREDNISONE 20 MG TABLET - METHOCARBAMOL 500 MG TABLET - LIDOCAINE 5 % TOPICAL PATCH 3. Degenerative disc disease, cervical - ICD9: 722.4, ICD10: M50.30 MDM Amount and/or Complexity of Data Reviewed Tests in the radiology section of CPT?: ordered and reviewed Risk of Complications, Morbidity, and/or Mortality Presenting problems: low Diagnostic procedures: low Management options: josette Kohc PA-C Allergies As of Date: 01/31/2025 (No Known Allergies) Date Reviewed: 01/31/2025 Reviewed by: Kathleen Hernandez MA - Fully Assessed Reason for Visit: Trauma [112] Cmt: Left shoulder pain x 2 weeks Primary Visit Diagnosis:Acute pain of left shoulder [M25.512] Other Visit Diagnoses:Cervical radiculopathy [M54.12] Degenerative disc disease, cervical [M50.30] Order(s):XR CERVICAL 2V FLEX/EXT [[id number]] Order #: [id number] FUTURE XR SHOULDER LIMITED 2V AP/TRUE AP LEFT [[id number]] Order #: [id number] FUTURE XR CERV INJURY 3V AP/LAT/ODON [[id number]] Order #: [id number] FUTURE predniSONE (DELTASONE) 20 mg tabletTake 1 tablet by mouth two times a day for 5 days.Disp: 10 tabletRfl: 0 methocarbamol (ROBAXIN) 500 mg tabletTake 1 tablet by mouth three times a day for (more content not included)... Normal [facility] No Panel Informationon 01-31 Radiology Study observation (narrative) [facility] XR CERVICAL 3V AP/LAT/ODONon 01-31-2025 XR CERVICAL 3V AP/LAT/ODON * * *Final Report* * * DATE OF EXAM: Jan 31 2025 1:54PM WOX 5309 - XR CERVICAL 3V AP/LAT/ODON / PROCEDURE REASON: Acute pain of left shoulder * * * * Physician Interpretation * * * * EXAMINATION: XR CERVICAL 3V AP/LAT/ODON PATIENT/TECHNOLOGIST PROVIDED HISTORY: pain for a few weeks posterior side of left shoulder with stiffness in neck off and on and now entire shoulder hurts no inj CLINICAL INFORMATION: 44 years old Male with Acute pain of left shoulder. Pain Radiating to Left Shoulder/Arm. TECHNIQUE: XR CERVICAL 3V AP/LAT/ODON Laterality: NOT APPLICABLE Number of different views (projections): 3 COMPARISON: None RESULT: Cervical spine: Counting reference: Craniocervical junction. Anatomic Variants: None. Post-op assessment: N/A Alignment: Alignment is satisfactory. Vertebral bodies: Vertebral body heights are maintained. Spine articulations: Mild disc space narrowing C6-C7 with endplate osteophytes. Mild scattered facet and uncovertebral degenerative change. Dedicated odontoid view is within normal limits. IMPRESSION: Degenerative changes as described. Registered Nurse Surgical Services: NORMAN Transcribe Date/Time: Jan 31 2025 1:56P Dictated by : JOSSY FARMER DO This examination was interpreted and the report reviewed and electronically signed by: JOSSY FARMER DO on Jan 31 2025 1:59PM EST [id number] Normal [facility] XR Cervical spine AP and Lat eral and Odontoidon 01-31-2025 IMPRESSION: Degenerative changes as described. Registered Nurse Surgical Services: NORMAN Transcribe Date/Time: Jan 31 2025 1:56P Dictated by : JOSSY FARMER DO This examination was interpreted and the report reviewed and electronically signed by: JOSSY FARMER DO on Jan 31 2025 1:59PM EST DIVISION OF RADIOLOGY * * *Final Report* * * DATE OF EXAM: Jan 31 2025 1:54PM WOX 5309 - XR CERVICAL 3V AP/LAT/ODON / PROCEDURE REASON: Acute pain of left shoulder * * * * Physician Interpretation * * * * EXAMINATION: XR CERVICAL 3V AP/LAT/ODON PATIENT/TECHNOLOGIST PROVIDED HISTORY: pain for a few weeks posterior side of left shoulder with stiffness in neck off and on and now entire shoulder hurts no inj CLINICAL INFORMATION: 44 years old Male with Acute pain of left shoulder. Pain Radiating to Left Shoulder/Arm. TECHNIQUE: XR CERVICAL 3V AP/LAT/ODON Laterality: NOT APPLICABLE Number of different views (projections): 3 COMPARISON: None RESULT: Cervical spine: Counting reference: Craniocervical junction. Anatomic Variants: None. Post-op assessment: N/A Alignment: Alignment is satisfactory. Vertebral bodies: Vertebral body heights are maintained. Spine articulations: Mild disc space narrowing C6-C7 with endplate osteophytes. Mild scattered facet and uncovertebral degenerative change. Dedicated odontoid view is within normal limits. DIVISION OF RADIOLOGY Provider, Yris Iqbal - 01/31/2025 * * *Final Report* * * DATE OF EXAM: Jan 31 2025 1:54PM WOX 5309 - XR CERVICAL 3V AP/LAT/ODON / PROCEDURE REASON: Acute pain of left shoulder * * * * Physician Interpretation * * * * EXAMINATION: XR CERVICAL 3V AP/LAT/ODON PATIENT/TECHNOLOGIST PROVIDED HISTORY: pain for a few weeks posterior side of left shoulder with stiffness in neck off and on and now entire shoulder hurts no inj CLINICAL INFORMATION: 44 years old Male with Acute pain of left shoulder. Pain Radiating to Left Shoulder/Arm. TECHNIQUE: XR CERVICAL 3V AP/LAT/ODON Laterality: NOT APPLICABLE Number of different views (projections): 3 COMPARISON: None RESULT: Cervical spine: Counting reference: Craniocervical junction. Anatomic Variants: None. Post-op assessment: N/A Alignment: Alignment is satisfactory. Vertebral bodies: Vertebral body heights are maintained. Spine articulations: Mild disc space narrowing C6-C7 with endplate osteophytes. Mild scattered facet and uncovertebral degenerative change. Dedicated odontoid view is within normal limits. IMPRESSION IMPRESSION: Degenerative changes as described. Registered Nurse Surgical Services: PSCAtul Transcribe Date/Time: Jan 31 2025 1:56P Dictated by : JOSSY FARMER DO This examination was interpreted and the report reviewed and electronically signed by: JOSSY FARMER DO on Jan 31 2025 1:59PM [facility] XR SHOULDER 2V AP/TRUE AP LT on 01-31-2025 XR SHOULDER 2V AP/TRUE AP LT * * *Final Report* * * DATE OF EXAM: Jan 31 2025 1:54PM WOX 5254 - XR SHOULDER 2V AP/TRUE AP LT / PROCEDURE REASON: Acute pain of left shoulder * * * * Physician Interpretation * * * * EXAMINATION: XR SHOULDER 2V AP/TRUE AP LT TECHNOLOGIST PROVIDED HISTORY: pain for a few weeks posterior side of left shoulder with stiffness in neck off and on and now entire shoulder hurts no inj CLINICAL INFORMATION: 44 years old Male with Acute pain of left shoulder. Pain--No Injury. TECHNIQUE: XR SHOULDER 2V AP/TRUE AP LT Laterality: LEFT Number of different views (projections): 2 COMPARISON: None RESULT: No acute fracture. Glenohumeral and acromioclavicular joint spaces are maintained. Acromiohumeral interval is maintained. IMPRESSION: No acute osseous abnormality. Registered Nurse Surgical Services: NORMAN Transcribe Date/Time: Jan 31 2025 1:54P Dictated by : JOSSY FARMER DO This examination was interpreted and the report reviewed and electronically signed by: JOSSY FARMER DO on Jan 31 2025 1:56PM EST [id number] Normal [facility] XR Shoulder - left 2 Viewson 01-31-2025 IMPRESSION: No acute osseous abnormality. Registered Nurse Surgical Services: PSCB Transcribe Date/Time: Jan 31 2025 1:54P Dictated by : JOSSY FARMER DO This examination was interpreted and the report reviewed and electronically signed by: JOSSY FARMER DO on Jan 31 2025 1:56PM EST DIVISION OF RADIOLOGY * * *Final Report* * * DATE OF EXAM: Jan 31 2025 1:54PM WOX 5254 - XR SHOULDER 2V AP/TRUE AP LT / PROCEDURE REASON: Acute pain of left shoulder * * * * Physician Interpretation * * * * EXAMINATION: XR SHOULDER 2V AP/TRUE AP LT TECHNOLOGIST PROVIDED HISTORY: pain for a few weeks posterior side of left shoulder with stiffness in neck off and on and now entire shoulder hurts no inj CLINICAL INFORMATION: 44 years old Male with Acute pain of left shoulder. Pain--No Injury. TECHNIQUE: XR SHOULDER 2V AP/TRUE AP LT Laterality: LEFT Number of different views (projections): 2 COMPARISON: None RESULT: No acute fracture. Glenohumeral and acromioclavicular joint spaces are maintained. Acromiohumeral interval is maintained. DIVISION OF RADIOLOGY Provider, [facility] - 01/31/2025 * * *Final Report* * * DATE OF EXAM: Jan 31 2025 1:54PM WOX 5254 - XR SHOULDER 2V AP/TRUE AP LT / PROCEDURE REASON: Acute pain of left shoulder * * * * Physician Interpretation * * * * EXAMINATION: XR SHOULDER 2V AP/TRUE AP LT TECHNOLOGIST PROVIDED HISTORY: pain for a few weeks posterior side of left shoulder with stiffness in neck off and on and now entire shoulder hurts no inj CLINICAL INFORMATION: 44 years old Male with Acute pain of left shoulder. Pain--No Injury. TECHNIQUE: XR SHOULDER 2V AP/TRUE AP LT Laterality: LEFT Number of different views (projections): 2 COMPARISON: None RESULT: No acute fracture. Glenohumeral and acromioclavicular joint spaces are maintained. Acromiohumeral interval is maintained. IMPRESSION IMPRESSION: No acute osseous abnormality. Registered Nurse Surgical Services: NORMAN Transcribe Date/Time: Jan 31 2025 1:54P Dictated by : JOSSY FARMER DO This examination was interpreted and the report reviewed and electronically signed by: JOSSY FARMER DO on Jan 31 2025 1:56PM EST [facility] XR Shoulder - left 2 ViewsOr dered By: Yris Provider on 01-31-2025 [facility] Vital Signs Date Time Vital Sign Value Performing Clinician Bhavesh mckinnon 01-31-2025 13:27-0400 Body temperature 98.1 [degF] Brandon Clutter PA-C Work Phone: [facility] 01-31-2025 13:27-0400 Body weight 65.2 kg Brandon Clutter PA-C Work Phone: [facility] 01-31-2025 13:27-0400 Diastolic blood pressure 72 mm[Hg] Brandon Clutter PA-C Work Phone: [facility] 01-31-2025 13:27-0400 Heart rate 71 /min Brandon Clutter PA-C Work Phone: [facility] 01-31-2025 13:27-0400 Respiratory rate 18 /min Brandon Clutter PA-C Work Phone: [facility] 01-31-2025 13:27-0400 SaO2% (BldA) [Mass fraction] 98 % Brandon Clutter PA-C Work Phone: [facility] 01-31-2025 13:27-0400 Systolic blood pressure 112 mm[Hg] Brandon Clutter PA-C Work Phone: [facility] Encounters Encounter Date Encounter Type Care Provider Facility Start: 07-06-2025 End: 07-06-2025 ambulatory FAWN BROWN Facility:[facility] Start: 06-17-2025 End: 06-17-2025 Emergency department patient visit Mann Babb Facility:[facility] Start: 01-31-2025 End: 01-31-2025 Subsequent hospital visit by physician Xr [facility] Work Phone: Radiology Comment on above: Acute pain of left s diana [M25.512] Start: 01-31-2025 End: 01-31-2025 Office outpatient visit 25 minutes Brandon Koch PA-C Work Phone: [facility] Comment on above: Acute pain of left s hokike (Primary Dx); Cervical radiculopathy; Degenerative disc disease, cervical Start: 01-31-2025 End: 01-31-2025 ambulatory BRANDON KOCH Facility:[facility] Procedures Date Procedure Procedure Detail Performing Clinician Start: 01-31-2025 Radex spine cervical 2 or 3 views Brandon Koch PA-C Work Phone: Plan of Treatment Date Care Activity Detail Author Start: 04-25-2025 Influenza vaccination Influenz a Vaccine (Season Ended) [facility] Start: 04-25-2024 Covid-19 Vaccine ( season) Covid-19 Vaccine ( season) [facility] Start: 2023 Diabetes Screening Diabetes Screenin g [facility] Start: 2023 Screening for malign ant neoplasm of colon [facility] Start: 2013 Lipid panel Lipid Screening [facility] Start: 1997 Hepatitis B Vaccine (1 of 3 - 19+ 3-dose series) Hepatitis B Vaccine (1 of 3 - 19+ 3-dose series) [facility] Start: 1997 Urine microalbumin profile DTaP,Tdap,Td Vaccine (1 - Tdap) [facility] Start: 1996 Anxiety Screening Anxiety Screening [facility] Start: 1996 Depression Screening Depression Scre ening [facility] Start: 1996 Hepatitis C screening Hepatitis C Sc noé [facility] Start: 1996 HIV screening HIV Screening [facility] End: 03-02-2026 XR Cervical spine 2 or 3 views and (Views W flexion and W extension) XR CERVICAL 2V FLEX/EXT Radiology STAT Acute pain of left shoulder 1 Occurrences starting 01/31/2025 until 03/02/2026 [facility] Work Phone: Comment on above: 1 Occurrences starti selin 01/31/2025 until 03/02/2026 Payers Date Payer Category Payer Self-pay [address] [employer] [place] [id number] 2022 Unknown [id number] Unknown [id number] Social History Date Type Detail Facility Start: 10-18-[facility] Start: 10-18-2013 Tobacco use and exposure Smoke less tobacco non-user [facility] Start: 07-31-2021 Alcoholic beverage intake Not Asked [facility] Start: 11-17-2020 End: 07-31-2021 History of Social function [facility] Start: 11-17-2020 End: 07-31-2021 Tobacco use panel [facility] National Score (1-10 0), lower number is lower risk Not on file [facility] Start: 1980 Sex assigned at Not on file [facility] Functional Status Date Assessment Result Facility 12-30-2013 Are you deaf, or do you have serious difficulty hearing No 12/30/2013 4:08 PM EDT Leila Newby MA No [facility] 12-30-2013 Are you blind, or do you have serious difficulty seeing, even when wearing glasses No 12/30/2013 4:08 PM EDT Leila Newby MA No [facility] 12-30-2013 Do you have serious difficulty walking or climbing stairs No 12/30/2013 4:08 PM EDT Leila Newby MA No [facility] 12-30-2013 Do you have difficul ty dressing or bathing No 12/30/2013 4:08 PM EDT Leila Newby MA No [facility] 12-30-2013 Because of a physica l, mental, or emotional condition, do you have difficulty doing errands alone such as visiting a physician's office or shopping No 12/30/2013 4:08 PM EDT Leila Newby MA No [facility] Mental Status Date Assessment Result Facility 12-30-2013 Because of a physica l, mental, or emotional condition, do you have serious difficulty concentrating, remembering, or making decisions No 12/30/2013 4:08 PM Leila Trujillo MA No [facility] Progress note 07-06-2025 Note Date & Type Note Facility 07-06-2025 Note HNO ID: [id number] Author: FAWN BROWN APRN.ACETYLENE TORCH BURNER Service: ? Author Type: Nurse Practitioner Type: Progress Notes Filed: 07/06/2025 12:49 Note Text: URGENT CARE BHARATI Cardenas is a 44 year old male. Patient presents with: Urinary Frequency: x 1 day, had kidney stones a couple weeks ago HPI Nontoxic-appearing 44-year-old male presents urgent care chief complaint urinary frequency. Duration of symptoms 1 day. Associated symptoms associate symptoms some dysuria flank pain urinary frequency. States passed kidney stones last week. Presents today for evaluation. OTC medications none. No difficulty passing urine or scrotal tenderness penile drainage rashes or concerns for STDs. Past medical history prescription medications allergies reviewed Review of Systems Constitutional: Negative for appetite change, chills, diaphoresis, fatigue and fever. Gastrointestinal: Negative for abdominal pain, diarrhea, nausea and vomiting. Genitourinary: Positive for flank pain and frequency. Negative for decreased urine volume, difficulty urinating, dysuria, enuresis, genital sores, hematuria, penile discharge, penile pain, penile swelling, scrotal swelling, testicular pain and urgency. Objective BP 122/60 Pulse 80 Temp 36.7 ?C (98.1 ?F) Resp 16 Wt 68 kg (149 lb 14.6 oz) SpO2 96% Physical Exam Constitutional: Appearance: Normal appearance. HENT: Head: Normocephalic. Jaw: No trismus, tenderness, swelling or pain on movement. Nose: Nose normal. No congestion or rhinorrhea. Mouth/Throat: Mouth: Mucous membranes are moist. Pharynx: Oropharynx is clear. Uvula midline. No pharyngeal swelling, oropharyngeal exudate, posterior oropharyngeal erythema or uvula swelling. Eyes: Conjunctiva/sclera: Conjunctivae normal. Cardiovascular: Rate and Rhythm: Normal rate. Pulmonary: Effort: Pulmonary effort is normal. Breath sounds: Normal breath sounds. No wheezing, rhonchi or rales. Abdominal: Palpations: Abdomen is soft. Tenderness: There is no abdominal tenderness. There is no right CVA tenderness, left CVA tenderness, guarding or rebound. Musculoskeletal: General: Normal range of motion. Cervical back: Normal range of motion and neck supple. No rigidity. Lymphadenopathy: Cervical: No cervical adenopathy. Skin: General: Skin is warm. Findings: No rash. Neurological: Mental Status: He is alert. {ASSESSMENT/PLAN: 1. Urinary frequency - ICD9: 788.41, ICD10: R35.0 - UA DIP, URINE (POC) - BACTERIAL CULTURE, URINE No acute findings on today's assessment. Blood noted on urine dip. We discussed possible renal calculi. We discussed ER evaluation. We discussed repeat urine dip. Patient was educated on supportive therapies. Patient will follow up with primary care provider 2 to 3 weeks patient was instructed to immediately proceed to emergency room for any new, worsening, or symptoms lasting longer than anticipated. The patient's clinical presentation is otherwise unremarkable at this time. Based on exam and clinical finding, the patient is stable for discharge. Plan of care was discussed with patient. Patient verbalizes understanding and agrees to plan of care. This note was generated using Janalakshmi software. It may contain errors in wording, punctuation, or spelling. Fawn Brown APRN.ACETYLENE TORCH BURNER History and Record Review Clinical information obtained from an independent historian. History obtained from or confirmed by: parent. External record(s) reviewed: prior outpatient record. Disposition The patient was discharged. Procedures [facility] Progress note 01-31-2025 Note Date & Type Note Facility 01-31-2025 Note HNO ID: [id number] Author: BRANDON KOCH PA-C Service: ? Author Type: Physician Manager Appointment Type: Progress Notes Filed: 01/31/2025 14:20 Note Text: This note was created using Fol[employer]. Subjective David Cardenas is a 44 year old male. Patient is a 44-year-old male who complains of posterior left shoulder pain that radiates to his left arm that he has been experiencing for the past 2 days. Patient denies accident or injury to his left shoulder and arm. 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 Patient denies neck pain and states he has no known history of degenerative disc disease. Patient has no history of fracture or surgery to his neck or left shoulder. 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 Patient is right-hand dominant. Patient has no history of similar symptoms. Trauma Review of Systems Musculoskeletal: Left Shoulder Pain All other systems reviewed and are negative. Objective BP 112/72 Pulse 71 Temp 36.7 ?C (98.1 ?F) Resp 18 Wt 65.2 kg (143 lb 11.8 oz) SpO2 98% Physical Exam Vitals and nursing note reviewed. Constitutional: Appearance: Normal appearance. He is normal weight. HENT: Head: Normocephalic and atraumatic. Nose: Nose normal. Mouth/Throat: Mouth: Mucous membranes are moist. Pharynx: Oropharynx is clear. Eyes: Extraocular Movements: Extraocular movements intact. Conjunctiva/sclera: Conjunctivae normal. Pupils: Pupils are equal, round, and reactive to light. Cardiovascular: Rate and Rhythm: Normal rate. Pulses: Normal pulses. Pulmonary: Effort: Pulmonary effort is normal. Breath sounds: Normal breath sounds. Musculoskeletal: General: Tenderness present. No swelling, deformity or signs of injury. Normal range of motion. Cervical back: Normal range of motion and neck supple. Skin: General: Skin is warm and dry. Capillary Refill: Capillary refill takes less than 2 seconds. Findings: No bruising or erythema. Neurological: General: No focal deficit present. Mental Status: He is alert and oriented to person, place, and time. Cranial Nerves: No cranial nerve deficit. Sensory: No sensory deficit. Motor: No weakness. Coordination: Coordination normal. Psychiatric: Mood and Affect: Mood normal. Behavior: Behavior normal. Thought Content: Thought content normal. Judgment: Judgment normal. Assessment and Plan Physical exam findings as noted above. X-ray cervical spine demonstrates disc space narrowing at C6-C7 with endplate osteophytes as reported by the radiologist. Radiologist also reports additional mild scattered degenerative changes. X-ray left shoulder is negative for acute findings and radiologist does not identify any notable degenerative changes. Patient was informed of the above findings. Patient was provided with prescriptions for prednisone 20 mg, Robaxin 500 mg and Lidoderm 5% patches. Supportive care instructions were discussed and patient verbalizes excellent understanding of same. CLINICAL IMPRESSION: Left Shoulder Pain; Cervical Radiculopathy; Degenerative Disc Disease Cervical Spine ASSESSMENT/PLAN: 1. Acute pain of left shoulder - ICD9: 719.41, ICD10: M25.512 (primary diagnosis) - XR CERV INJURY 3V AP/LAT/ODON 2. Cervical radiculopathy - ICD9: 723.4, ICD10: M54.12 - PREDNISONE 20 MG TABLET - METHOCARBAMOL 500 MG TABLET - LIDOCAINE 5 % TOPICAL PATCH 3. Degenerative disc disease, cervical - ICD9: 722.4, ICD10: M50.30 MDM Amount and/or Complexity of Data Reviewed Tests in the radiology section of CPT?: ordered and reviewed Risk of Complications, Morbidity, and/or Mortality Presenting problems: low Diagnostic procedures: low Management options: low Brandon Koch PA-C [facility] History of Present illness Narrative 01-31-2025 Brandon Koch PA-C - 01/31/2025 1:47 PM EDT Note Date & Type Note Facility 01-31-2025 History of Presen t illness Narrative This note was created using [employer]. Subjective David Cardenas is a 44 year old male. Patient is a 44-year-old male who complains of posterior left shoulder pain that radiates to his left arm that he has been experiencing for the past 2 days. Patient denies accident or injury to his left shoulder and arm. 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 Patient denies neck pain and states he has no known history of degenerative disc disease. Patient has no history of fracture or surgery to his neck or left shoulder. 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 Patient is right-hand dominant. Patient has no history of similar symptoms. Trauma Review of Systems Musculoskeletal: Left Shoulder Pain All other systems reviewed and are negative. Objective BP 112/72 Pulse 71 Temp 36.7 C (98.1 F) Resp 18 Wt 65.2 kg (143 lb 11.8 oz) SpO2 98% Physical Exam Vitals and nursing note reviewed. Constitutional: Appearance: Normal appearance. He is normal weight. HENT: Head: Normocephalic and atraumatic. Nose: Nose normal. Mouth/Throat: Mouth: Mucous membranes are moist. Pharynx: Oropharynx is clear. Eyes: Extraocular Movements: Extraocular movements intact. Conjunctiva/sclera: Conjunctivae normal. Pupils: Pupils are equal, round, and reactive to light. Cardiovascular: Rate and Rhythm: Normal rate. Pulses: Normal pulses. Pulmonary: Effort: Pulmonary effort is normal. Breath sounds: Normal breath sounds. Musculoskeletal: General: Tenderness present. No swelling, deformity or signs of injury. Normal range of motion. Cervical back: Normal range of motion and neck supple. Skin: General: Skin is warm and dry. Capillary Refill: Capillary refill takes less than 2 seconds. Findings: No bruising or erythema. Neurological: General: No focal deficit present. Mental Status: He is alert and oriented to person, place, and time. Cranial Nerves: No cranial nerve deficit. Sensory: No sensory deficit. Motor: No weakness. Coordination: Coordination normal. Psychiatric: Mood and Affect: Mood normal. Behavior: Behavior normal. Thought Content: Thought content normal. Judgment: Judgment normal. Assessment and Plan Physical exam findings as noted above. X-ray cervical spine demonstrates disc space narrowing at C6-C7 with endplate osteophytes as reported by the radiologist. Radiologist also reports additional mild scattered degenerative changes. X-ray left shoulder is negative for acute findings and radiologist does not identify any notable degenerative changes. Patient was informed of the above findings. Patient was provided with prescriptions for prednisone 20 mg, Robaxin 500 mg and Lidoderm 5% patches. Supportive care instructions were discussed and patient verbalizes excellent understanding of same. CLINICAL IMPRESSION: Left Shoulder Pain; Cervical Radiculopathy; Degenerative Disc Disease Cervical Spine ASSESSMENT/PLAN: 1. Acute pain of left shoulder - ICD9: 719.41, ICD10: M25.512 (primary diagnosis) - XR CERV INJURY 3V AP/LAT/ODON 2. Cervical radiculopathy - ICD9: 723.4, ICD10: M54.12 - PREDNISONE 20 MG TABLET - METHOCARBAMOL 500 MG TABLET - LIDOCAINE 5 % TOPICAL PATCH 3. Degenerative disc disease, cervical - ICD9: 722.4, ICD10: M50.30 MDM Amount and/or Complexity of Data Reviewed Tests in the radiology section of CPT : ordered and reviewed Risk of Complications, Morbidity, and/or Mortality Presenting problems: low Diagnostic procedures: low Management options: josette Koch PA-C documented in this encounter [facility] History of Present illness Narrative 01-31-2025 Herlinda Echols RT(R) - 01/31/2025 1:40 PM EDT Note Date & Type Note Facility 01-31-2025 History of Presen t illness Narrative Radiology Service Progress Note PATIENT NAME: David Cardenas DATE OF SERVICE: January 31, 2025 TIME: 1:46 PM PATIENT IDENTITY VERIFICATION COMPLETED USING TWO (2) IDENTIFIERS: Name and Date of confirmed by patient verbally. FALL SCREENING: Has the patient had 2 falls in the last year or 1 fall with injury or currently using an Ambulatory Assistive Device (Walker, Cane, Wheelchair, Crutches, etc.)? No PATIENT GENDER DATA: Assigned male at PATIENT RELEVANT IMPLANT DATA REVIEWED: Not Applicable PATIENT PRESENTS WITH AN IMPLANTABLE OR ATTACHED SUPERVISOR HARDBOARD: No RADIOLOGY DEPARTMENT: General X-ray: Exam(s) Completed: Spine X-Ray(s): Cervical AP / LAT Upper Extremity X-Ray(s): Shoulder, AP / TRUE AP left PERIPHERAL IV DATA: Not applicable SIGNED BY: RT Javid(R) January 31, 2025 1:46 PM documented in this encounter [facility] Progress note 01-31-2025 Note Date & Type Note Facility 01-31-2025 Note HNO ID: [id number] Author: HERLINDA ECHOLS RT(Estefani) Service: Radiology Author Type: Technologist Type: Progress Notes Filed: 01/31/2025 13:52 Note Text: Radiology Service Progress Note PATIENT NAME: David Cardenas DATE OF SERVICE: January 31, 2025 TIME: 1:46 PM PATIENT IDENTITY VERIFICATION COMPLETED USING TWO (2) IDENTIFIERS: Name and Date of confirmed by patient verbally. FALL SCREENING: Has the patient had 2 falls in the last year or 1 fall with injury or currently using an Ambulatory Assistive Device (Walker, Cane, Wheelchair, Crutches, etc.)? No PATIENT GENDER DATA: Assigned male at PATIENT RELEVANT IMPLANT DATA REVIEWED: Not Applicable PATIENT PRESENTS WITH AN IMPLANTABLE OR ATTACHED SUPERVISOR HARDBOARD: No RADIOLOGY DEPARTMENT: General X-ray: Exam(s) Completed: Spine X-Ray(s): Cervical AP / LAT Upper Extremity X-Ray(s): Shoulder, AP / TRUE AP left PERIPHERAL IV DATA: Not applicable SIGNED BY: RT Javid(R) January 31, 2025 1:[address] [facility] Evaluation note Note Date & Type Note Facility Evaluation note Diagnosis Acute pain of left shoulder- Primary Cervical radiculopathy Brachial neuritis or radiculitis nos Degenerative disc disease, cervical Degeneration of cervical intervertebral disc Acute pain of left shoulder documented in this encounter [facility] Evaluation note Note Date & Type Note Facility Evaluation note Diagnosis Acute pain of left shoulder documented in this encounter [facility] Reason for visit Narrative Diagnostic Procedure Only (Urgent) - Closed Note Date & Type Note Facility Reason for visit Narrative Specialty Diagnoses / Procedures Referred By Fadi t Referred To Contact XR IMAGING Diagnoses Acute pain of left shoulder Procedures XR SHOULDER LIMITED 2V AP/TRUE AP LEFT RADEX SHOULDER COMPLETE MINIMUM 2 VIEWS Brandon Koch PA-C [address] [place] [address] Phone: tel: fax: [place] [address] Referral ID Status Reason Start Date Expiration Date V isits Requested Visits Authorized [id number] Closed Auto-Generate d Referral 01/31/2025 03/02/2026 1 1 [facility] Summary Purpose Family History No Family History Records FoundNo Family History Records Found Advance Directives No Advanced Directives Records FoundNo Advanced Directives Records Found Additional Source Comments Source Comments (unrecognize d section and content) In the event this informatio n is protected by the Federal Confidentiality of Alcohol and Drug Abuse Patient Records regulations: The Federal rules restrict any use of the information to criminally investigate or prosecute any alcohol or drug abuse patient.[facility] the event this information is protected by the Federal Confidentiality of Alcohol and Drug Abuse Patient Records regulations: The Federal rules restrict any use of the information to criminally investigate or prosecute any alcohol or drug abuse patient.[facility] Reason for Visit (unrecogniz ed section and content) Reason Comments Trauma Left shoulder pain x 2 weeks (unrecognized sect ion and content) No Status Records FoundNo Status Records Found INFORMATION SOURCE (unrecogn ized section and content) DATE CREATED AUTHOR 06/29/2025 [facility] DATE CREATED AUTHOR AUTHOR'S ORGANIZ ATION 07/08/2025 [facility] FOR RECORDS PERTAINING TO PATIENTS WHO ARE OR HAVE BEEN ENROLLED IN A CHEMICAL DEPENDENCY/SUBSTANCEABUSE PROGRAM, SOME INFORMATION MAY BE OMITTED. This clinical summary was aggregated from multiple sources. Caution should be exercised in using it in the provision of clinical care. This summary normalizes information from multiple sources, and as a consequence, information in this document may materially change the coding, format and clinical context of patient data. In addition, data may be omitted in some cases. CLINICAL DECISIONS SHOULD BE BASED ON THE PRIMARY CLINICAL RECORDS. [facility] provides no warranty or guarantee of the accuracy or completeness of information in this document.
== END 2025-07-08 16:00 | disposition home or self-care (01) ==
PROVIDERS: Emergency Provider Emergency Medicine; Visit Provider Emergency Medicine
DX: N13.6 Pyonephrosis (principal); R31.9 Hematuria, unspecified; F17.210 Nicotine dependence, cigarettes, uncomplicated
CPT/HCPCS: 74176; 80053; 81001; 85025; 96361; 96374; 99283; A4216